=== PATIENT | male | born 1935 | race Caucasian/White ===

== ENCOUNTER 2019-10-31 | Emergency (ER) | payer OTHER, MEDICARE ==
[2019-10-31] MEDS ORDERED: ATORVASTATIN CA10 MG PO (10:18)
[2019-10-31 11:01] LABS: HEMATOCRIT 49.3 % (39.0-50.0); HEMOGLOBIN 15.9 g/dl (14.0-18.0); IMMATURE GRANULOCYTES 0.3 % (0.0-5.0); MEAN CELL VOLUME 94.3 fL CALC (80.0-100.0); MEAN CORPUSCULAR HGB 30.4 pG CALC (26.0-32.0); MEAN CORPUSCULAR HGB CONC 32.3 g/L CALC (32.0-36.0); NEUT# 5.62 thou/uL (1.82-7.42); RED BLOOD COUNT 5.23 mill/uL (4.70-6.10); RED CELL DISTRI WIDTH 14.2 % (11.5-15.5)
[2019-10-31 11:18] LABS: ALBUMIN 4.8 g/dL (3.2-5.0); ALKALINE PHOSPHATASE 90 u/l (38-126); ANION GAP 15 (6-22 (CALC)); BILIRUBIN, TOTAL 0.9 mg/dL (0.0-1.4); BUN 16 mg/dL (8-23); BUN/CREATININE RATIO 22 (12-20 (CALC)); CARBON DIOXIDE 28 mmol/l (22-30); CHLORIDE 101 mmol/l (95-108); CREATININE 0.8 mg/dL (0.7-1.3); GFR > 60 ML/MIN (>=60 (CALC)); GFR FOR AFR.AMER. > 60 ML/MIN (>=60 (CALC)); POTASSIUM 4.3 mmol/l (3.5-5.1); SGOT/AST 42 u/l (19-48); SODIUM 140 mmol/l (137-146); TOTAL PROTEIN 8.6 g/dL (6.3-8.2)
[2019-10-31] MEDS ORDERED: DOXY-CAPS100 MG PO (11:48)
[2019-10-31] MEDS ORDERED: PREDNISONE50 MG PO (11:48)
== END 2019-10-31 12:26 | disposition home or self-care (01) | DRG 203 ==
PROVIDERS: Family Medicine
DX: J40 Bronchitis, not specified as acute or chronic (principal)

== ENCOUNTER 2021-10-26 12:45 | Emergency (ER) | payer OTHER, MEDICARE ==
[~2021-10-26] VITALS: Ht 175.3 cm; Wt 52.2 kg
[~2021-10-26 12:45] MED LIST: ATORVASTATIN CA10 MG PO; DOXY-CAPS100 MG PO; PREDNISONE50 MG PO
[2021-10-26] MEDS ORDERED: PROAIR HFA108 MCG/AC (13:09)
[2021-10-26] MEDS ORDERED: SPIRIVA RE1.25 MCG/A (13:09)
[2021-10-26] MEDS ORDERED: WIXELA INHUB 251 AER IN (13:10)
[2021-10-26 13:48] LABS: URINE BILIRUBIN - DIPSTICK NEGATIVE (NEGATIVE); URINE BLOOD DIPSTICK MODERATE (NEGATIVE); URINE COLOR YELLOW; URINE GLUCOSE - DIPSTICK NEGATIVE (NEGATIVE); URINE KETONE NEGATIVE (NEGATIVE); URINE LEUK ESTERASE LARGE (NEGATIVE); URINE NITRITE - DIPSTICK NEGATIVE (Negative); URINE PROTEIN - DIPSTICK 100 mg/dL (NEG-TRACE); URINE SPECIFIC GRAVITY 1.025; URINE UROBILINOGEN - DIPSTICK 0.2 E.U./dL (0.2)
[2021-10-26 13:49] LABS: URINE BACTERIA MANY hpf; URINE EPITHELIAL CELLS RARE EPI/hpf (0-FEW); URINE WBC 50-100 WBC/hpf (0-5)
[2021-10-26 14:01] LABS: HEMATOCRIT 45.3 % (39.0-50.0); IMMATURE GRANULOCYTES 0.2 % (0.0-5.0); MEAN CELL VOLUME 97.4 fL CALC (80.0-100.0); MEAN CORPUSCULAR HGB 32.3 pG CALC (26.0-32.0); MEAN CORPUSCULAR HGB CONC 33.1 g/dL CAL (32.0-36.0); NEUT# 7.29 thou/uL (1.82-7.42); RED BLOOD COUNT 4.65 mill/uL (4.70-6.10); RED CELL DISTRI WIDTH 13.9 % (11.5-15.5)
[2021-10-26 14:14] LABS: ALBUMIN 3.9 g/dL (3.2-5.0); ALKALINE PHOSPHATASE 111 u/l (38-126); ANION GAP 8 (6-22 (CALC)); BILIRUBIN, TOTAL 0.9 mg/dL (0.0-1.4); BUN 15 mg/dL (8-23); BUN/CREATININE RATIO 17 (12-20 (CALC)); CARBON DIOXIDE 33 mmol/l (22-30); CHLORIDE 102 mmol/l (95-108); CREATININE 0.9 mg/dL (0.7-1.3); GFR > 60 ML/MIN (>=60 (CALC)); GFR FOR AFR.AMER. > 60 ML/MIN (>=60 (CALC)); POTASSIUM 4.3 mmol/l (3.5-5.1); SGOT/AST 29 u/l (19-48); SODIUM 138 mmol/l (137-146); TOTAL PROTEIN 7.7 g/dL (6.3-8.2)
[2021-10-26] MEDS ORDERED: OMNI-PAC300 MG PO (14:31)
[2021-10-26 15:15] VITALS: BP 167/97
== END 2021-10-26 15:15 | disposition home or self-care (01) | DRG 690 ==
LOC: ED 12:45
PROVIDERS: Family Medicine
DX: N39.0 Urinary tract infection, site not specified (principal); J44.9 Chronic obstructive pulmonary disease, unspecified; E78.00 Pure hypercholesterolemia, unspecified; B95.2 Enterococcus as the cause of diseases classified elsewhere

== ENCOUNTER 2021-11-13 18:27 | Emergency (ER) | payer OTHER, MEDICARE ==
[~2021-11-13 18:27] MED LIST changes: +OMNI-PAC300 MG PO; +PROAIR HFA108 MCG/AC; +SPIRIVA RE1.25 MCG/A; +WIXELA INHUB 251 AER IN
[2021-11-14] MEDS ORDERED: CIPROFLOXACN500 MG PO (19:18)
== END 2021-11-13 19:40 | disposition left against medical advice (07) | DRG 951 ==
LOC: ED 18:27 → LWOBS 19:40 → ED 19:40
DX: Z53.21 Procedure and treatment not carried out due to patient leaving prior to being seen by health care provider (principal)

== ENCOUNTER 2021-11-14 15:48 | Emergency (ER) | payer OTHER, MEDICARE ==
[~2021-11-14] VITALS: Ht 175.3 cm; Wt 65.0 kg
[2021-11-14 16:39] LABS: HEMATOCRIT 46.8 % (39.0-50.0); IMMATURE GRANULOCYTES 0.1 % (0.0-5.0); MEAN CELL VOLUME 98.3 fL CALC (80.0-100.0); MEAN CORPUSCULAR HGB 31.5 pG CALC (26.0-32.0); MEAN CORPUSCULAR HGB CONC 32.1 g/dL CAL (32.0-36.0); NEUT# 7.77 thou/uL (1.82-7.42); RED BLOOD COUNT 4.76 mill/uL (4.70-6.10); RED CELL DISTRI WIDTH 14.2 % (11.5-15.5)
[2021-11-14 16:57] LABS: ALBUMIN 4.3 g/dL (3.2-5.0); ALKALINE PHOSPHATASE 129 u/l (38-126); ANION GAP 10 (6-22 (CALC)); BILIRUBIN, TOTAL 0.6 mg/dL (0.0-1.4); BUN 23 mg/dL (8-23); BUN/CREATININE RATIO 29 (12-20 (CALC)); CARBON DIOXIDE 34 mmol/l (22-30); CHLORIDE 99 mmol/l (95-108); CREATININE 0.8 mg/dL (0.7-1.3); GFR > 60 ML/MIN (>=60 (CALC)); GFR FOR AFR.AMER. > 60 ML/MIN (>=60 (CALC)); POTASSIUM 4.4 mmol/l (3.5-5.1); SGOT/AST 32 u/l (19-48); SODIUM 139 mmol/l (137-146); TOTAL PROTEIN 8.1 g/dL (6.3-8.2)
[2021-11-14 17:04] LABS: URINE BILIRUBIN - DIPSTICK NEGATIVE (NEGATIVE); URINE BLOOD DIPSTICK TRACE-INTACT (NEGATIVE); URINE COLOR YELLOW; URINE GLUCOSE - DIPSTICK NEGATIVE (NEGATIVE); URINE KETONE TRACE mg/dL (NEGATIVE); URINE PROTEIN - DIPSTICK 30 mg/dL (NEG-TRACE); URINE UROBILINOGEN - DIPSTICK 0.2 E.U./dL (0.2)
[2021-11-14 17:09] LABS: URINE LEUK ESTERASE LARGE (NEGATIVE); URINE NITRITE - DIPSTICK NEGATIVE (Negative)
[2021-11-14 17:19] LABS: URINE WBC TNTC WBC/hpf (0-5)
[2021-11-14 18:15] LABS: AMYLASE 60 u/l (30-110); LIPASE 39 u/l (23-300)
[2021-11-14] MEDS ORDERED: CIPROFLOXACN500 MG PO (19:18)
[2021-11-14 21:20] VITALS: BP 121/90
== END 2021-11-14 21:10 | disposition home or self-care (01) | DRG 690 ==
LOC: ED 15:48
PROVIDERS: Emergency Medicine
DX: N39.0 Urinary tract infection, site not specified (principal); J44.9 Chronic obstructive pulmonary disease, unspecified; E78.00 Pure hypercholesterolemia, unspecified; B95.2 Enterococcus as the cause of diseases classified elsewhere

== ENCOUNTER 2022-02-11 12:41 | Observation (INO) | payer OTHER, MEDICARE ==
[~2022-02-11] VITALS: Ht 175.3 cm; Wt 55.0 kg
[2022-02-11] VITALS (20 sets, daily range): BP systolic 116–162; BP diastolic 69–118
[~2022-02-11 12:41] MED LIST changes: -ATORVASTATIN CA10 MG PO; +ATORVASTATIN CA80 MG PO; +CIPROFLOXACN500 MG PO; -PROAIR HFA108 MCG/AC; +PROAIR HFA108 MCG/AC PO
--- NOTE | 2022-02-11 12:55 | NUR ---
PT AMBULATED TO ROOM FOR EVAL OF SOB WITH EXERTION
[2022-02-11 13:10] LABS: HEMATOCRIT 46.2 % (39.0-50.0); HEMOGLOBIN 15.1 g/dl (14.0-18.0); IMMATURE GRANULOCYTES 0.3 % (0.0-5.0); MEAN CELL VOLUME 96.7 fL CALC (80.0-100.0); MEAN CORPUSCULAR HGB 31.6 pG CALC (26.0-32.0); MEAN CORPUSCULAR HGB CONC 32.7 g/dL CAL (32.0-36.0); NEUT# 4.34 thou/uL (1.82-7.42); RED BLOOD COUNT 4.78 mill/uL (4.70-6.10); RED CELL DISTRI WIDTH 14.3 % (11.5-15.5)
[2022-02-11 13:15] LABS: ALBUMIN 4.4 g/dL (3.2-5.0); ALKALINE PHOSPHATASE 113 u/l (38-126); ANION GAP 12 (6-22 (CALC)); BILIRUBIN, TOTAL 0.6 mg/dL (0.0-1.4); BUN 19 mg/dL (8-23); BUN/CREATININE RATIO 24 (12-20 (CALC)); CARBON DIOXIDE 28 mmol/l (22-30); CHLORIDE 103 mmol/l (95-108); CREATININE 0.8 mg/dL (0.7-1.3); GFR > 60 ML/MIN (>=60 (CALC)); GFR FOR AFR.AMER. > 60 ML/MIN (>=60 (CALC)); POTASSIUM 4.4 mmol/l (3.5-5.1); SGOT/AST 38 u/l (19-48); SODIUM 138 mmol/l (137-146); TOTAL PROTEIN 7.8 g/dL (6.3-8.2)
--- NOTE | 2022-02-11 13:29 | NUR ---
PT RECEIVING NEB TX AT THIS TIME.
--- NOTE | 2022-02-11 13:34 | NUR ---
LAB IN TO OBTAIN SWABS AND BLOOD. PT STABLE AT THIS TIME.
--- NOTE | 2022-02-11 14:15 | NUR ---
DR RESTREPO IN TO SEE PT AND DISCUSS POC. PT STABLE AT THIS TIME. NO DISTRESS, BREATHING EVEN AND UNLABORED.
--- NOTE | 2022-02-11 15:15 | NUR ---
PT RESTING ON ED BED, DENIES ANY NEEDS. ADVISED OF WAIT TIME.
--- NOTE | 2022-02-11 16:15 | NUR ---
PT REMAINS STABLE, DENIES NEEDS.
--- NOTE | 2022-02-11 16:42 | NUR ---
PT AMBULATORY TO ED BATHROOM WITH STANDBY ASSIST, PT WITH STEADY GAIT. PT BACK TO ROOM AND PROVIDED WITH WATER TO DRINK. PT STABLE. WILL CONTINUE TO MONITOR.
--- NOTE | 2022-02-11 17:34 | NUR ---
PT RESTING ON ED BED, VSS. ADVISED OF WAIT TIME. PT DENIES ANY NEEDS AT THIS TIME.
--- NOTE | 2022-02-11 17:55 | NUR ---
DR RESTREPO IN TO SPEAK WITH PT ABOUT RESULTS AND POC.
--- NOTE | 2022-02-11 18:49 | NUR ---
PT SITTING AT THE EDGE OF THE BED, AWAITING ADMISSION. PT STABLE.
--- NOTE | 2022-02-11 19:30 | NUR ---
CALL PLACED TO MED/SURG TO GIVE REPORT, NURSE WILL CALL BACK.
--- NOTE | 2022-02-11 19:54 | NUR ---
SBAR REPORT GIVEN TO CHANDAN BRAMBILA
--- NOTE | 2022-02-11 19:55 | NUR ---
ADMITTED TO ROOM 262 FROM ED IN STABLE CONDITION. VS DOCUMENTED. PT A/O X 4 RESPIRATIONS EVEN AND UNLABORED, LUNGS DIMINISHED, SOB NOTED WITH ACTIVITY. BS ACTIVE NO BLE EDEMA NOTED. PIV WDL BED LOW AND LOCKED CALL ALLAN IN REACH SIDE RAILS UP SAFETY MEASURES IN PLACE PER POLICY
--- NOTE | 2022-02-11 20:00 | NUR ---
PT TAKEN TO MED/SURG VIA WHEELCHAIR IN STABLE CONDITION. ALL BELONGINGS AND PAPERWORK HANDED OFF TO STAFF.
--- NOTE | 2022-02-12 00:40 | NUR ---
RESTING IN BED EYES CLOSED RESPIRATIONS EVEN AND UNLABORED. VS CHARTED SAFETY MEASURES IN PLACE PER POLICY
--- NOTE | 2022-02-12 03:50 | NUR ---
PT SLEPT ON AND OFF OVERNIGHT. VS DOCUMENTED. NO ACUTE EVENTS THIS SHIFT. MINIMAL SOB WITH ACTIVITY
[2022-02-12 04:24] VITALS: BP 123/76
[2022-02-12 05:27] LABS: HEMATOCRIT 45.3 % (39.0-50.0); HEMOGLOBIN 14.9 g/dl (14.0-18.0); MEAN CORPUSCULAR HGB 31.6 pG CALC (26.0-32.0); MEAN CORPUSCULAR HGB CONC 32.9 g/dL CAL (32.0-36.0); RED BLOOD COUNT 4.72 mill/uL (4.70-6.10); RED CELL DISTRI WIDTH 14.3 % (11.5-15.5)
[2022-02-12 05:39] LABS: ANION GAP 11 (6-22 (CALC)); BUN 17 mg/dL (8-23); BUN/CREATININE RATIO 26 (12-20 (CALC)); CARBON DIOXIDE 24 mmol/l (22-30); CHLORIDE 108 mmol/l (95-108); CREATININE 0.7 mg/dL (0.7-1.3); GFR > 60 ML/MIN (>=60 (CALC)); GFR FOR AFR.AMER. > 60 ML/MIN (>=60 (CALC)); MAGNESIUM 2.2 mg/dL (1.6-2.3); POTASSIUM 4.3 mmol/l (3.5-5.1); SODIUM 139 mmol/l (137-146)
[2022-02-12 07:28] VITALS: BP 118/71
[2022-02-12] MEDS ORDERED: BREZTRI AEROSPH1 AER PO (09:07)
[2022-02-12] MEDS ORDERED: TAMSULOSIN HCL0.4 MG PO (09:08)
--- NOTE | 2022-02-12 10:21 | NUR ---
PT SITTING ON THE SIDE OF THE BED AT THIS TIME. STATES NO PAIN OR FEELING OF SOB. ONLY WHEN MOVING AROUND IN THE ROOM. ASSESSMENT AND VITALS ALLOWED. FALL/SAFTEY PRECAUTION IN PLACE. CALL LIGHT WITHIN REACH.
[2022-02-12] MEDS ORDERED: GUAIFENESI100 MG/51 PO (13:15)
[2022-02-12] MEDS ORDERED: MEDDOSEPAK PO (13:23)
--- NOTE | 2022-02-12 16:17 | NUR ---
Discharge instructions given. Patient verbalizes understanding of same. Discharged in stable condition via Wheelchair to Home with staff. All belongings sent with pt.
== END 2022-02-12 15:55 | disposition home or self-care (01) | DRG 192 ==
LOC: ED 12:41 → ED-I 18:00 → ED 18:16 → MS2 18:17
PROVIDERS: Family Medicine; ADMIT Hospitalist; ATTEND Hospitalist
DX: J44.1 Chronic obstructive pulmonary disease with (acute) exacerbation (principal); I27.20 Pulmonary hypertension, unspecified; E78.00 Pure hypercholesterolemia, unspecified; N40.0 Benign prostatic hyperplasia without lower urinary tract symptoms; Z87.891 Personal history of nicotine dependence; Z20.822 Contact with and (suspected) exposure to COVID-19
CPT/HCPCS: J1650; Q9967

== ENCOUNTER 2022-02-25 19:41 | Emergency (ER) | payer OTHER, MEDICARE ==
[~2022-02-25] VITALS: Ht 175.3 cm; Wt 54.0 kg
[~2022-02-25 19:41] MED LIST changes: +BREZTRI AEROSPH1 AER PO; +GUAIFENESI100 MG/51 PO; +MEDDOSEPAK PO; +TAMSULOSIN HCL0.4 MG PO
[2022-02-25 19:48] VITALS: BP 140/99
[2022-02-25 20:00] VITALS: BP 132/114
[2022-02-25 20:15] VITALS: BP 155/80
[2022-02-25] MEDS ORDERED: KEFLEX500 MG PO (20:17)
[2022-02-25 20:32] VITALS: BP 131/80
[2022-02-25 20:51] VITALS: BP 131/80
== END 2022-02-25 20:45 | disposition home or self-care (01) | DRG 605 ==
LOC: ED 19:41
PROC: 0HQMXZZ Repair Right Foot Skin, External Approach (ICD-10-PCS; principal; 2022-02-25)
DX: S91.311A Laceration without foreign body, right foot, initial encounter (principal); W20.8XXA Other cause of strike by thrown, projected or falling object, initial encounter; Y92.000 Kitchen of unspecified non-institutional (private) residence as the place of occurrence of the external cause

== ENCOUNTER 2022-03-08 15:38 | Emergency (ER) | payer OTHER, MEDICARE ==
[~2022-03-08] VITALS: Ht 175.3 cm; Wt 77.0 kg
[~2022-03-08 15:38] MED LIST changes: +KEFLEX500 MG PO
[2022-03-08 15:46] VITALS: BP 139/86
[2022-03-08] MEDS ORDERED: OMNI-PAC300 MG PO (15:48)
== END 2022-03-08 15:57 | disposition home or self-care (01) | DRG 950 ==
LOC: ED 15:38
DX: S91.311D Laceration without foreign body, right foot, subsequent encounter (principal); X58.XXXD Exposure to other specified factors, subsequent encounter

== ENCOUNTER 2022-06-08 12:25 | Observation (INO) | payer OTHER, MEDICARE ==
[~2022-06-08] VITALS: Ht 175.3 cm; Wt 73.0 kg
[2022-06-08] VITALS (20 sets, daily range): BP systolic 110–170; BP diastolic 68–103
[2022-06-08 12:59] LABS: HEMATOCRIT 47.1 % (39.0-50.0); HEMOGLOBIN 15.7 g/dl (14.0-18.0); IMMATURE GRANULOCYTES 0.1 % (0.0-5.0); MEAN CELL VOLUME 94.6 fL CALC (80.0-100.0); MEAN CORPUSCULAR HGB 31.5 pG CALC (26.0-32.0); MEAN CORPUSCULAR HGB CONC 33.3 g/dL CAL (32.0-36.0); NEUT# 5.7 thou/uL (1.82-7.42); RED BLOOD COUNT 4.98 mill/uL (4.70-6.10); RED CELL DISTRI WIDTH 13.7 % (11.5-15.5)
--- NOTE | 2022-06-08 13:01 | NUR ---
RT AT BEDSIDE FOR BREATHING TREATMENT.
[2022-06-08 13:11] LABS: ALBUMIN 4.5 g/dL (3.2-5.0); ALKALINE PHOSPHATASE 109 u/l (38-126); ANION GAP 13 (6-22 (CALC)); BILIRUBIN, TOTAL 0.7 mg/dL (0.0-1.4); BUN 15 mg/dL (8-23); BUN/CREATININE RATIO 23 (12-20 (CALC)); CARBON DIOXIDE 24 mmol/l (22-30); CHLORIDE 106 mmol/l (95-108); CREATININE 0.7 mg/dL (0.7-1.3); GFR FOR AFR.AMER. > 60 ML/MIN (>=60 (CALC)); GFR OTHER RACES > 60 ML/MIN (>=60 (CALC)); POTASSIUM 4.4 mmol/l (3.5-5.1); SGOT/AST 40 u/l (19-48); SODIUM 138 mmol/l (137-146); TOTAL PROTEIN 7.8 g/dL (6.3-8.2)
--- NOTE | 2022-06-08 14:00 | NUR ---
PATIENT ALERT AND ORIENTED X4, RESTING ON STRETCHER WITH NO SIGNS OF RESPIRATORY DISTRESS AFTER BREATHING TREATMENT. IV ANTIBIOTICS INFUSING. WAITING ON RESULTS AND DISPO
--- NOTE | 2022-06-08 14:25 | NUR ---
WAITING ON MED SURG NURSE TO TAKE PATIENT UP TO MED SURG.
--- NOTE | 2022-06-08 14:48 | NUR ---
PATIENT IN RADIOLOGY FOR CTA
[2022-06-08 15:16] LABS: URINE BILIRUBIN - DIPSTICK NEGATIVE (NEGATIVE); URINE BLOOD DIPSTICK NEGATIVE (NEGATIVE); URINE COLOR YELLOW; URINE GLUCOSE - DIPSTICK NEGATIVE (NEGATIVE); URINE KETONE NEGATIVE (NEGATIVE); URINE LEUK ESTERASE NEGATIVE (NEGATIVE); URINE NITRITE - DIPSTICK NEGATIVE (Negative); URINE PROTEIN - DIPSTICK NEGATIVE (NEG-TRACE); URINE UROBILINOGEN - DIPSTICK 0.2 E.U./dL (0.2)
[2022-06-08] MEDS ORDERED: STIOLTO RESPIMA1 AER (15:34)
--- NOTE | 2022-06-08 15:35 | NUR ---
MED REC COMPLETED WITH PATIENT.
--- NOTE | 2022-06-08 16:45 | NUR ---
Admission Note Report Given to: COLETTE Transported by: X Wheelchair Stretcher Transported with: X Nurse Transporter X Patent IV X O2 X Cylinder Press Operator Helper Location: ICU X MS2 PATIENT TAKES GLASSES, BLACK CELL PHONE AND COTHING WITH PATIENT. BEDSIDE REPORT, CARE RELINQUISHED
--- NOTE | 2022-06-08 17:00 | NUR ---
PATIENT IS A/OX3, CLEAR SPEECH, 3MM PERRL BILAT EYES, DENTURES, DIMINSIHED LUNG SOUNDS. ACTIVE BOWEL SOUNDS. SOFT NON TENDER ABODMEN. NO EDEMA PRESENT AT THIS TIME. NO OPEN AREAS. STEADY ON HIS FEET. WALKS TO AND FROM BATHROOM STEADY. ROOM AIR 91/90%. STATED HE ONLY WANTS TO USE THE O2 NC WHEN AMBULATING. SAFETY MEASURES IN PLACE,. CALL LIGHT IN REACH. VITAL SIGNS STABLE. WILL COTNINUE TO MONITOR PER HOSPITAL'S POLICY.
--- NOTE | 2022-06-08 18:00 | NUR ---
SITTING UP WAITING FOR DINNER TRAY
--- NOTE | 2022-06-08 19:10 | NUR ---
REPORT RECEIVED FROM Quique ROYAL RN
--- NOTE | 2022-06-08 19:45 | NUR ---
ASSEMENT COMPLETED AT THIS TIME.
--- NOTE | 2022-06-08 21:00 | NUR ---
PATIENT PROVIDED WITH JUICE AND ICECREAM PER PATIENT REQUEST.
--- NOTE | 2022-06-09 00:30 | NUR ---
PATIENT RESTING COMOFRTABLY, DENIES ANY CURRENT NEEDS, CALL LIGHT AQND BEDSIDE TABLE WTHIHN REACH.
--- NOTE | 2022-06-09 04:00 | NUR ---
PATIENT UP TO THE BATHROOM WIth STAND BY ASSIT X1.
[2022-06-09 04:14] VITALS: BP 102/71
[2022-06-09 06:21] LABS: HEMATOCRIT 43.3 % (39.0-50.0); HEMOGLOBIN 14.3 g/dl (14.0-18.0); IMMATURE GRANULOCYTES 0.2 % (0.0-5.0); MEAN CELL VOLUME 96.9 fL CALC (80.0-100.0); NEUT# 9.04 thou/uL (1.82-7.42); RED BLOOD COUNT 4.47 mill/uL (4.70-6.10); RED CELL DISTRI WIDTH 13.8 % (11.5-15.5)
[2022-06-09 07:16] LABS: ALBUMIN 3.7 g/dL (3.2-5.0); ALKALINE PHOSPHATASE 85 u/l (38-126); ANION GAP 13 (6-22 (CALC)); BUN 20 mg/dL (8-23); BUN/CREATININE RATIO 31 (12-20 (CALC)); CARBON DIOXIDE 24 mmol/l (22-30); CHLORIDE 106 mmol/l (95-108); CREATININE 0.6 mg/dL (0.7-1.3); GFR FOR AFR.AMER. > 60 ML/MIN (>=60 (CALC)); GFR OTHER RACES > 60 ML/MIN (>=60 (CALC)); MAGNESIUM 2.5 mg/dL (1.6-2.3); POTASSIUM 4.1 mmol/l (3.5-5.1); SGOT/AST 27 u/l (19-48); SODIUM 139 mmol/l (137-146); TOTAL PROTEIN 6.3 g/dL (6.3-8.2)
[2022-06-09 07:18] LABS: BILIRUBIN, TOTAL 0.4 mg/dL (0.0-1.4)
[2022-06-09 07:57] VITALS: BP 113/61
[2022-06-09 08:00] VITALS: BP 113/61
--- NOTE | 2022-06-09 08:47 | NUR ---
PT RESTING IN HIGH FOWLERS POSITION. PT A/OX3 ASSESMENT AND VS COMPLETED. HEART RHYTHM NORMAL. BOWEL SOUNDS ACTIVE. RESPIRATIONS UNLABORED. PT SATS 90'S PT STATES DOES NOT NEED OXYGEN . PT STATES SHORT OF BREATH WHEN AMUBALATING CALMS DOWN ONCE SEATED. PT DENIES ADDITIONAL NEEDS AT THE TIME ALL SAFETY PRECAUTIONS IN PLACE. IV SITE NOTED.
[2022-06-09 11:37] VITALS: BP 125/66
[2022-06-09] MEDS ORDERED: PREDNISONE10 MG PO (12:07)
[2022-06-09] MEDS ORDERED: PROVENTIL0.083 % IN (12:07)
--- NOTE | 2022-06-09 12:41 | NUR ---
PT TO BE DC. ON CONTINUOUS PULSE OX MONITOR.
--- NOTE | 2022-06-09 14:00 | NUR ---
Discharge instructions given. Patient verbalizes understanding of same. Discharged in stable condition via Wheelchair to Home with volunteer. All belongings sent with pt. IV REMOVED TELE REMOVED ER INFORMED
== END 2022-06-09 13:54 | disposition home or self-care (01) | DRG 192 ==
LOC: ED 12:25 → ED-I 16:07 → ED 16:18 → MS2 16:19
PROVIDERS: Family Medicine; ADMIT Internal Medicine; ATTEND Internal Medicine
DX: J44.1 Chronic obstructive pulmonary disease with (acute) exacerbation (principal); N40.0 Benign prostatic hyperplasia without lower urinary tract symptoms; Z20.822 Contact with and (suspected) exposure to COVID-19
CPT/HCPCS: Q9967

== ENCOUNTER 2022-07-20 13:01 | Emergency (ER) | payer OTHER, MEDICARE ==
[~2022-07-20] VITALS: Ht 175.3 cm; Wt 55.3 kg
[~2022-07-20 13:01] MED LIST changes: +PREDNISONE10 MG PO; +PROVENTIL0.083 % IN; +STIOLTO RESPIMA1 AER
[2022-07-20 13:35] LABS: ALKALINE PHOSPHATASE 108 u/l (38-126); ANION GAP 15 (6-22 (CALC)); BUN 15 mg/dL (8-23); BUN/CREATININE RATIO 19 (12-20 (CALC)); CARBON DIOXIDE 25 mmol/l (22-30); CHLORIDE 102 mmol/l (95-108); CREATININE 0.8 mg/dL (0.7-1.3); GFR FOR AFR.AMER. > 60 ML/MIN (>=60 (CALC)); GFR OTHER RACES > 60 ML/MIN (>=60 (CALC)); POTASSIUM 4.3 mmol/l (3.5-5.1); SGOT/AST 37 u/l (19-48); SODIUM 138 mmol/l (137-146)
[2022-07-20 13:39] LABS: HEMATOCRIT 47.9 % (39.0-50.0); HEMOGLOBIN 16.1 g/dl (14.0-18.0); IMMATURE GRANULOCYTES 0.1 % (0.0-5.0); MEAN CELL VOLUME 94.5 fL CALC (80.0-100.0); MEAN CORPUSCULAR HGB 31.8 pG CALC (26.0-32.0); MEAN CORPUSCULAR HGB CONC 33.6 g/dL CAL (32.0-36.0); NEUT# 5.81 thou/uL (1.82-7.42); RED BLOOD COUNT 5.07 mill/uL (4.70-6.10); RED CELL DISTRI WIDTH 14.1 % (11.5-15.5)
[2022-07-20 13:47] LABS: ALBUMIN 4.6 g/dL (3.2-5.0); BILIRUBIN, TOTAL 0.8 mg/dL (0.0-1.4); TOTAL PROTEIN 7.7 g/dL (6.3-8.2)
[2022-07-20] MEDS ORDERED: ZPAK PO ×2 (14:52→15:38)
[2022-07-20] MEDS ORDERED: PREDNISONE50 MG PO ×2 (14:52→15:38)
[2022-07-20] MEDS ORDERED: IPRATROPIU0.5 MG/3 M IN ×2 (14:52→15:38)
[2022-07-20 15:02] VITALS: BP 135/94
== END 2022-07-20 15:14 | disposition home or self-care (01) | DRG 192 ==
LOC: ED 13:01
PROVIDERS: Family Medicine
DX: J44.1 Chronic obstructive pulmonary disease with (acute) exacerbation (principal); Z20.822 Contact with and (suspected) exposure to COVID-19

== ENCOUNTER 2022-09-12 11:35 | Emergency (ER) | payer OTHER, MEDICARE ==
[~2022-09-12] VITALS: Ht 175.3 cm; Wt 52.2 kg
[~2022-09-12 11:35] MED LIST changes: +IPRATROPIU0.5 MG/3 M IN; +ZPAK PO
[2022-09-12] MEDS ORDERED: METHOCARBAMOL500 MG PO ×2 (13:39→13:40)
[2022-09-12] MEDS ORDERED: NAPROXEN500 MG PO ×2 (13:39→13:40)
[2022-09-12 13:44] VITALS: BP 128/78
== END 2022-09-12 13:48 | disposition home or self-care (01) | DRG 544 ==
LOC: ED 11:35
DX: M48.56XA Collapsed vertebra, not elsewhere classified, lumbar region, initial encounter for fracture (principal); J44.9 Chronic obstructive pulmonary disease, unspecified

== ENCOUNTER 2023-02-17 14:27 | Observation (INO) | payer OTHER, MEDICARE ==
[2023-02-17] VITALS (13 sets, daily range): BP systolic 101–150; BP diastolic 60–99
[~2023-02-17] VITALS: Ht 175.3 cm; Wt 62.1 kg
[~2023-02-17 14:27] MED LIST changes: +METHOCARBAMOL500 MG PO; +NAPROXEN500 MG PO
[2023-02-17 15:08] LABS: BASO% 0.7 % (0-3); EOS% 1.2 % (0-8); HEMATOCRIT 49.6 % (39.0-50.0); HEMOGLOBIN 15.9 g/dl (14.0-18.0); IMMATURE GRANULOCYTES 0.4 % (0.0-5.0); LYMPH% 5.2 % (15-41); MEAN CORPUSCULAR HGB 31.4 pG CALC (26.0-32.0); MEAN CORPUSCULAR HGB CONC 32.1 g/dL CAL (32.0-36.0); MONO% 2.1 % (2-13); NEUT# 7.58 thou/uL (1.82-7.42); NEUT% 90.4 % (42-76); RED BLOOD COUNT 5.06 mill/uL (4.70-6.10); RED CELL DISTRI WIDTH 13.8 % (11.5-15.5)
[2023-02-17 15:21] LABS: ALBUMIN 4.7 g/dL (3.2-5.0); ALKALINE PHOSPHATASE 109 u/l (38-126); ANION GAP 12 (6-22 (CALC)); BILIRUBIN, TOTAL 0.7 mg/dL (0.2-1.3); BUN 18 mg/dL (8-23); BUN/CREATININE RATIO 22 (12-20 (CALC)); CARBON DIOXIDE 28 mmol/l (22-30); CHLORIDE 104 mmol/l (95-108); CREATININE 0.8 mg/dL (0.7-1.3); GFR FOR AFR.AMER. > 60 ML/MIN (>=60 (CALC)); GFR OTHER RACES > 60 ML/MIN (>=60 (CALC)); POTASSIUM 4.5 mmol/l (3.5-5.1); SGOT/AST 49 u/l (19-48); SODIUM 139 mmol/l (137-146); TOTAL PROTEIN 7.9 g/dL (6.3-8.2)
[2023-02-17] MEDS ORDERED: PREDNISONE5 MG PO (17:26)
[2023-02-18 05:26] VITALS: BP 133/81
[2023-02-18 07:02] VITALS: BP 115/61
[2023-02-18 10:09] VITALS: BP 149/95
[2023-02-18 15:14] VITALS: BP 109/62
[2023-02-18 18:39] VITALS: BP 115/68
[2023-02-18 22:10] VITALS: BP 126/73
[2023-02-19 04:44] VITALS: BP 101/57
[2023-02-19 05:17] LABS: URINE BILIRUBIN - DIPSTICK NEGATIVE (NEGATIVE); URINE BLOOD DIPSTICK NEGATIVE (NEGATIVE); URINE COLOR YELLOW; URINE GLUCOSE - DIPSTICK 250 mg/dL (NEGATIVE); URINE KETONE NEGATIVE (NEGATIVE); URINE LEUK ESTERASE NEGATIVE (NEGATIVE); URINE PROTEIN - DIPSTICK NEGATIVE (NEG-TRACE); URINE UROBILINOGEN - DIPSTICK 0.2 E.U./dL (0.2)
[2023-02-19 05:18] LABS: URINE NITRITE - DIPSTICK NEGATIVE (Negative)
[2023-02-19 05:26] LABS: MEAN CELL VOLUME 97.4 fL CALC (80.0-100.0); MEAN CORPUSCULAR HGB 32.2 pG CALC (26.0-32.0); MEAN CORPUSCULAR HGB CONC 33.1 g/dL CAL (32.0-36.0); RED BLOOD COUNT 4.25 mill/uL (4.70-6.10)
[2023-02-19 05:33] LABS: HEMATOCRIT 41.4 % (39.0-50.0); HEMOGLOBIN 13.7 g/dl (14.0-18.0)
[2023-02-19 05:46] LABS: ALBUMIN 3.8 g/dL (3.2-5.0); ALKALINE PHOSPHATASE 76 u/l (38-126); ANION GAP 9 (6-22 (CALC)); BILIRUBIN, TOTAL 0.4 mg/dL (0.2-1.3); BUN 23 mg/dL (8-23); BUN/CREATININE RATIO 30 (12-20 (CALC)); CARBON DIOXIDE 28 mmol/l (22-30); CHLORIDE 105 mmol/l (95-108); CREATININE 0.8 mg/dL (0.7-1.3); GFR FOR AFR.AMER. > 60 ML/MIN (>=60 (CALC)); GFR OTHER RACES > 60 ML/MIN (>=60 (CALC)); MAGNESIUM 2.5 mg/dL (1.6-2.3); POTASSIUM 4.4 mmol/l (3.5-5.1); SGOT/AST 34 u/l (19-48); SODIUM 137 mmol/l (137-146); TOTAL PROTEIN 6.4 g/dL (6.3-8.2)
[2023-02-19 07:35] VITALS: BP 130/71
[2023-02-19 10:50] VITALS: BP 132/66
[2023-02-19 16:16] VITALS: BP 139/75
[2023-02-19 20:01] VITALS: BP 139/74
[2023-02-19 23:53] VITALS: BP 116/67
[2023-02-20 03:59] VITALS: BP 115/72
[2023-02-20 05:48] LABS: BASO% 0.1 % (0-3); HEMATOCRIT 42.4 % (39.0-50.0); HEMOGLOBIN 13.8 g/dl (14.0-18.0); IMMATURE GRANULOCYTES 0.4 % (0.0-5.0); LYMPH% 2.8 % (15-41); MEAN CELL VOLUME 97.2 fL CALC (80.0-100.0); MEAN CORPUSCULAR HGB 31.7 pG CALC (26.0-32.0); MEAN CORPUSCULAR HGB CONC 32.5 g/dL CAL (32.0-36.0); MONO% 2.7 % (2-13); NEUT# 10.6 thou/uL (1.82-7.42); RED BLOOD COUNT 4.36 mill/uL (4.70-6.10); RED CELL DISTRI WIDTH 14.3 % (11.5-15.5)
[2023-02-20 05:59] LABS: ALBUMIN 3.6 g/dL (3.2-5.0); ALKALINE PHOSPHATASE 70 u/l (38-126); ANION GAP 10 (6-22 (CALC)); BILIRUBIN, TOTAL 0.3 mg/dL (0.2-1.3); BUN 23 mg/dL (8-23); BUN/CREATININE RATIO 33 (12-20 (CALC)); CARBON DIOXIDE 24 mmol/l (22-30); CHLORIDE 108 mmol/l (95-108); CREATININE 0.7 mg/dL (0.7-1.3); GFR FOR AFR.AMER. > 60 ML/MIN (>=60 (CALC)); GFR OTHER RACES > 60 ML/MIN (>=60 (CALC)); MAGNESIUM 2.5 mg/dL (1.6-2.3); POTASSIUM 4.5 mmol/l (3.5-5.1); SGOT/AST 38 u/l (19-48); SODIUM 138 mmol/l (137-146); TOTAL PROTEIN 5.9 g/dL (6.3-8.2)
[2023-02-20 06:48] VITALS: BP 129/74
[2023-02-20 10:34] VITALS: BP 152/77
[2023-02-20] MEDS ORDERED: ZITHROMAX250 MG PO (13:54)
[2023-02-20] MEDS ORDERED: PREDNISONE10 MG PO (13:54)
== END 2023-02-20 15:46 | disposition home or self-care (01) | DRG 190 ==
LOC: ED 14:27 → ED-I 14:42 → ED 14:42 → MS2 16:51
PROVIDERS: Nurse Practitioner; Nurse Practitioner Family; ADMIT Internal Medicine; ATTEND Internal Medicine
DX: J44.1 Chronic obstructive pulmonary disease with (acute) exacerbation (principal); J96.01 Acute respiratory failure with hypoxia; E78.5 Hyperlipidemia, unspecified; N40.0 Benign prostatic hyperplasia without lower urinary tract symptoms; Z87.891 Personal history of nicotine dependence; Z20.822 Contact with and (suspected) exposure to COVID-19
CPT/HCPCS: J1650

== ENCOUNTER 2023-12-13 15:24 | Observation (INO) | payer OTHER, MEDICARE ==
[2023-12-13] VITALS (12 sets, daily range): BP systolic 86–130; BP diastolic 61–80
[~2023-12-13] VITALS: Ht 175.3 cm; Wt 54.4 kg
[~2023-12-13 15:24] MED LIST changes: +PREDNISONE5 MG PO; +ZITHROMAX250 MG PO
[2023-12-13 15:48] LABS: GFR FOR AFR.AMER. > 60 ML/MIN (>=60 (CALC)); GFR OTHER RACES > 60 ML/MIN (>=60 (CALC))
[2023-12-13 15:50] LABS: BASO% 0.5 % (0-3); EOS% 3.9 % (0-8); HEMATOCRIT 40.3 % (39.0-50.0); HEMOGLOBIN 13.1 g/dl (14.0-18.0); IMMATURE GRANULOCYTES 0.1 % (0.0-5.0); MEAN CELL VOLUME 99.5 fL CALC (80.0-100.0); MEAN CORPUSCULAR HGB 32.3 pG CALC (26.0-32.0); MEAN CORPUSCULAR HGB CONC 32.5 g/dL CAL (32.0-36.0); MONO% 9.8 % (2-13); NEUT# 7.62 thou/uL (1.82-7.42); NEUT% 75.7 % (42-76); RED BLOOD COUNT 4.05 mill/uL (4.70-6.10); RED CELL DISTRI WIDTH 14.4 % (11.5-15.5)
[2023-12-13 16:07] LABS: ALBUMIN 3.3 g/dL (3.2-5.0); ALKALINE PHOSPHATASE 97 u/l (38-126); ANION GAP 7 (6-22 (CALC)); BILIRUBIN, TOTAL 0.8 mg/dL (0.2-1.3); BUN 18 mg/dL (8-23); BUN/CREATININE RATIO 26 (12-20 (CALC)); CALCULATED LDLCHOLESTEROL 121 mg/dL (62-129 (CALC)); CARBON DIOXIDE 31 mmol/l (22-30); CHLORIDE 106 mmol/l (95-108); CHOLESTEROL HDL RATIO 3.9 (<4.4 (CALC)); CREATININE 0.7 mg/dL (0.7-1.3); GFR FOR AFR.AMER. > 60 ML/MIN (>=60 (CALC)); GFR OTHER RACES > 60 ML/MIN (>=60 (CALC)); HDL CHOLESTEROL 47 mg/dL (39.0-59.0); POTASSIUM 3.9 mmol/l (3.5-5.1); SGOT/AST 40 u/l (19-48); SODIUM 140 mmol/l (137-146); TOTAL CHOLESTEROL 184 mg/dl (0-199); TOTAL TRIGLYCERIDES 80 mg/dl (0-149); VLDL CHOLESTROL 16 mg/dl (0-38 (CALC))
[2023-12-13] MEDS ORDERED: ASPIRIN 81 MG/TAB PO ONE (16:15)
[2023-12-13 16:39] LABS: INTERNATIONAL NORMALIZED RATIO 1.1 RATIO (0.7-1.3); PROTHROMBIN TIME 10.2 SECONDS (9.0-12.5)
[2023-12-13] MEDS ORDERED: IPRATROPIUM-Albuterol 0.5MG-2.5MG/3 ML NEB ONE (16:55)
[2023-12-13] MEDS ORDERED: PROVENTIL0.083 % IN (16:58)
[2023-12-13] MEDS ORDERED: MUCINEX600 MG PO (17:00)
[2023-12-13] MEDS ORDERED: MIRTAZAPINE15 MG PO (17:02)
[2023-12-13] MEDS ORDERED: CALCIUM 600/VI600 MG PO (17:03)
[2023-12-13] MEDS ORDERED: SODIUM CHLORIDE 0.9% 1,000 ML IV PRN (18:40)
[2023-12-13] MEDS ORDERED: DEXTROSE 250 ML IV PRN (18:40)
[2023-12-13] MEDS ORDERED: ACETAMINOPHEN 325 MG/TAB PO PRN (18:40)
[2023-12-13] MEDS ORDERED: MAGNESIUM HYDROXIDE 30 ML UDC PO PRN (18:40)
[2023-12-13] MEDS ORDERED: HALOPERIDOL LACTATE 5 MG/ML SDV IV PRN (18:50)
[2023-12-13] MEDS ORDERED: IPRATROPIUM-Albuterol 0.5MG-2.5MG/3 ML NEB PRN (18:50)
[2023-12-13 19:10] LABS: URINE BLOOD DIPSTICK Negative (NEGATIVE); URINE COLOR Yellow; URINE GLUCOSE - DIPSTICK Negative (NEGATIVE); URINE KETONE 15 mg/dL (NEGATIVE); URINE LEUK ESTERASE Negative (NEGATIVE); URINE NITRITE - DIPSTICK Negative (Negative); URINE PH 6.5 (4.5-8.0); URINE PROTEIN - DIPSTICK Negative (NEG-TRACE); URINE UROBILINOGEN - DIPSTICK 0.2 E.U./dL (0.2)
[2023-12-13] MEDS ORDERED: ATORVASTATIN CALCIUM 40 MG/TAB PO SCH (21:00)
[2023-12-13] MEDS ORDERED: MIRTAZAPINE 15 MG/TAB PO SCH (21:00)
[2023-12-13] MEDS ORDERED: ENOXAPARIN SODIUM 40 MG/0.4 ML SYR SC SCH (21:00)
[2023-12-14] VITALS (10 sets, daily range): BP systolic 111–137; BP diastolic 62–81
[2023-12-14 05:53] LABS: BASO% 0.5 % (0-3); EOS% 11.7 % (0-8); HEMATOCRIT 37.7 % (39.0-50.0); HEMOGLOBIN 12.3 g/dl (14.0-18.0); IMMATURE GRANULOCYTES 0.2 % (0.0-5.0); LYMPH% 16.1 % (15-41); MEAN CELL VOLUME 99.5 fL CALC (80.0-100.0); MEAN CORPUSCULAR HGB 32.5 pG CALC (26.0-32.0); MEAN CORPUSCULAR HGB CONC 32.6 g/dL CAL (32.0-36.0); MONO% 8.6 % (2-13); NEUT# 5.96 thou/uL (1.82-7.42); NEUT% 62.9 % (42-76); RED BLOOD COUNT 3.79 mill/uL (4.70-6.10); RED CELL DISTRI WIDTH 14.5 % (11.5-15.5)
[2023-12-14 06:06] LABS: ALBUMIN 2.8 g/dL (3.2-5.0); ALKALINE PHOSPHATASE 83 u/l (38-126); ANION GAP 6 (6-22 (CALC)); BILIRUBIN, TOTAL 0.7 mg/dL (0.2-1.3); BUN 19 mg/dL (8-23); BUN/CREATININE RATIO 31 (12-20 (CALC)); CARBON DIOXIDE 29 mmol/l (22-30); CHLORIDE 110 mmol/l (95-108); CREATININE 0.6 mg/dL (0.7-1.3); GFR FOR AFR.AMER. > 60 ML/MIN (>=60 (CALC)); GFR OTHER RACES > 60 ML/MIN (>=60 (CALC)); MAGNESIUM 2.2 mg/dL (1.6-2.3); SGOT/AST 43 u/l (19-48); SODIUM 140 mmol/l (137-146); TOTAL PROTEIN 5.3 g/dL (6.3-8.2)
[2023-12-14] MEDS ORDERED: TAMSULOSIN HCL 0.4 MG CAP PO SCH (08:00)
[2023-12-14] MEDS ORDERED: ASPIRIN EC 81 MG/TAB PO SCH (09:00)
[2023-12-14] MEDS ORDERED: predniSONE 20 MG/TAB PO SCH (10:30)
[2023-12-14] MEDS ORDERED: METOPROLOL TARTRATE 25 MG/TAB PO SCH (12:30)
[2023-12-15 04:20] VITALS: BP 123/71
[2023-12-15 06:51] VITALS: BP 114/69
[2023-12-15 06:53] LABS: BASO% 0.4 % (0-3); EOS% 2.3 % (0-8); HEMATOCRIT 35.4 % (39.0-50.0); HEMOGLOBIN 11.3 g/dl (14.0-18.0); IMMATURE GRANULOCYTES 0.3 % (0.0-5.0); LYMPH% 12.3 % (15-41); MEAN CELL VOLUME 101.4 fL CALC (80.0-100.0); MEAN CORPUSCULAR HGB 32.4 pG CALC (26.0-32.0); MEAN CORPUSCULAR HGB CONC 31.9 g/dL CAL (32.0-36.0); MONO% 10.2 % (2-13); NEUT# 5.58 thou/uL (1.82-7.42); NEUT% 74.5 % (42-76); RED BLOOD COUNT 3.49 mill/uL (4.70-6.10); RED CELL DISTRI WIDTH 14.5 % (11.5-15.5)
[2023-12-15 07:45] LABS: ALBUMIN 2.4 g/dL (3.2-5.0); ALKALINE PHOSPHATASE 100 u/l (38-126); ANION GAP 5 (6-22 (CALC)); BUN 21 mg/dL (8-23); BUN/CREATININE RATIO 27 (12-20 (CALC)); CARBON DIOXIDE 28 mmol/l (22-30); CHLORIDE 111 mmol/l (95-108); CREATININE 0.8 mg/dL (0.7-1.3); GFR FOR AFR.AMER. > 60 ML/MIN (>=60 (CALC)); GFR OTHER RACES > 60 ML/MIN (>=60 (CALC)); MAGNESIUM 2.1 mg/dL (1.6-2.3); POTASSIUM 4.2 mmol/l (3.5-5.1); SGOT/AST 33 u/l (19-48); SODIUM 139 mmol/l (137-146); TOTAL PROTEIN 4.8 g/dL (6.3-8.2)
[2023-12-15 07:59] LABS: BILIRUBIN, TOTAL 0.4 mg/dL (0.2-1.3)
[2023-12-15 10:47] VITALS: BP 108/64
[2023-12-15 14:52] VITALS: BP 118/78
[2023-12-15 19:23] VITALS: BP 111/69
[2023-12-15 23:54] VITALS: BP 105/66
[2023-12-16] VITALS (7 sets, daily range): BP systolic 96–113; BP diastolic 61–72
[2023-12-16] MEDS ORDERED: LOPRESSOR25 MG PO (13:17)
[2023-12-17 00:09] VITALS: BP 117/64
[2023-12-17 03:07] VITALS: BP 119/72
[2023-12-17 05:31] LABS: BASO% 0.4 % (0-3); EOS% 2.6 % (0-8); HEMATOCRIT 35.4 % (39.0-50.0); HEMOGLOBIN 11.1 g/dl (14.0-18.0); IMMATURE GRANULOCYTES 0.7 % (0.0-5.0); LYMPH% 14.4 % (15-41); MEAN CELL VOLUME 102.6 fL CALC (80.0-100.0); MEAN CORPUSCULAR HGB 32.2 pG CALC (26.0-32.0); MEAN CORPUSCULAR HGB CONC 31.4 g/dL CAL (32.0-36.0); MONO% 10.6 % (2-13); NEUT# 5.76 thou/uL (1.82-7.42); NEUT% 71.3 % (42-76); RED BLOOD COUNT 3.45 mill/uL (4.70-6.10); RED CELL DISTRI WIDTH 14.8 % (11.5-15.5)
[2023-12-17 05:48] LABS: ALBUMIN 2.3 g/dL (3.2-5.0); ALKALINE PHOSPHATASE 91 u/l (38-126); ANION GAP 1 (6-22 (CALC)); BILIRUBIN, TOTAL 0.3 mg/dL (0.2-1.3); BUN 18 mg/dL (8-23); BUN/CREATININE RATIO 27 (12-20 (CALC)); CARBON DIOXIDE 29 mmol/l (22-30); CHLORIDE 113 mmol/l (95-108); CREATININE 0.6 mg/dL (0.7-1.3); GFR FOR AFR.AMER. > 60 ML/MIN (>=60 (CALC)); GFR OTHER RACES > 60 ML/MIN (>=60 (CALC)); MAGNESIUM 2.2 mg/dL (1.6-2.3); POTASSIUM 3.8 mmol/l (3.5-5.1); SGOT/AST 32 u/l (19-48); SODIUM 139 mmol/l (137-146); TOTAL PROTEIN 4.5 g/dL (6.3-8.2)
[2023-12-17 07:42] VITALS: BP 122/76
[2023-12-17 10:57] VITALS: BP 92/54
[2023-12-17 14:30] VITALS: BP 119/69; BP 122/70
== END 2023-12-17 16:22 | disposition home health service (06) | DRG 948 ==
LOC: ED 15:24 → ED-I 17:14 → ED 18:02 → MS2 18:03
PROVIDERS: Emergency Medicine; Nurse Practitioner Family; ADMIT Student in an Organized Health Care Education/Training Program; ATTEND Student in an Organized Health Care Education/Training Program
DX: R41.82 Altered mental status, unspecified (principal); J96.11 Chronic respiratory failure with hypoxia; I47.20 Ventricular tachycardia, unspecified; R53.1 Weakness; R64 Cachexia; R42 Dizziness and giddiness; J44.9 Chronic obstructive pulmonary disease, unspecified; E03.9 Hypothyroidism, unspecified; E78.5 Hyperlipidemia, unspecified; N40.0 Benign prostatic hyperplasia without lower urinary tract symptoms; T41.5X6A Underdosing of therapeutic gases, initial encounter; Z91.128 Patient's intentional underdosing of medication regimen for other reason; Z87.891 Personal history of nicotine dependence; Z99.81 Dependence on supplemental oxygen; Z91.81 History of falling; Z60.2 Problems related to living alone; Z20.822 Contact with and (suspected) exposure to COVID-19
CPT/HCPCS: J1650

== ENCOUNTER 2024-05-04 11:31 | Observation (INO) | payer OTHER, MEDICARE ==
[2024-05-04] VITALS (22 sets, daily range): BP systolic 99–144; BP diastolic 68–88
[~2024-05-04] VITALS: Ht 167.6 cm; Wt 49.0 kg
[~2024-05-04 11:31] MED LIST changes: +CALCIUM 600/VI600 MG PO; +LOPRESSOR25 MG PO; +MIRTAZAPINE15 MG PO; +MUCINEX600 MG PO
[2024-05-04 12:14] LABS: BASO% 0.5 % (0-3); EOS% 7.7 % (0-8); HEMATOCRIT 39.3 % (39.0-50.0); HEMOGLOBIN 12.9 g/dl (14.0-18.0); IMMATURE GRANULOCYTES 0.2 % (0.0-5.0); MEAN CELL VOLUME 98.7 fL CALC (80.0-100.0); MEAN CORPUSCULAR HGB 32.4 pG CALC (26.0-32.0); MEAN CORPUSCULAR HGB CONC 32.8 g/dL CAL (32.0-36.0); MONO% 3.9 % (2-13); NEUT# 6.7 thou/uL (1.82-7.42); NEUT% 79.7 % (42-76); RED BLOOD COUNT 3.98 mill/uL (4.70-6.10); RED CELL DISTRI WIDTH 14.3 % (11.5-15.5)
[2024-05-04 12:28] LABS: ALBUMIN 3.7 g/dL (3.2-5.0); ALKALINE PHOSPHATASE 108 u/l (38-126); ANION GAP 5 (6-22 (CALC)); BUN 14 mg/dL (8-23); BUN/CREATININE RATIO 23 (12-20 (CALC)); CARBON DIOXIDE 30 mmol/l (22-30); CHLORIDE 106 mmol/l (95-108); CREATININE 0.6 mg/dL (0.7-1.3); ESTIMATED GFR 92 ML/MIN (>=90 (CALC)); POTASSIUM 3.9 mmol/l (3.5-5.1); SGOT/AST 43 u/l (19-48); SODIUM 137 mmol/l (137-146); TOTAL PROTEIN 6.7 g/dL (6.3-8.2)
[2024-05-04 12:38] LABS: BILIRUBIN, TOTAL 0.8 mg/dL (0.2-1.3)
[2024-05-04] MEDS ORDERED: IPRATROPIUM-Albuterol 0.5MG-2.5MG/3 ML NEB ONE (13:15)
[2024-05-04] MEDS ORDERED: methylPREDNISolone SODIUM SUCC 125 MG/2 ML SDV IV ONE (13:15)
[2024-05-04] MEDS ORDERED: AZITHROMYCIN 500 MG in SODIUM CHLORIDE 0.9% 250 ML IV ONE (14:30)
[2024-05-04] MEDS ORDERED: AZITHROMYCIN 500 MG/VIAL SDV IV ONE (15:09)
[2024-05-04] MEDS ORDERED: MAGNESIUM HYDROXIDE 30 ML UDC PO PRN (15:15)
[2024-05-04] MEDS ORDERED: ACETAMINOPHEN 325 MG/TAB PO PRN (15:15)
[2024-05-04] MEDS ORDERED: IPRATROPIUM-Albuterol 0.5MG-2.5MG/3 ML NEB PRN (15:20)
[2024-05-04] MEDS ORDERED: GUAIFENESIN 600 MG/TAB PO PRN (15:30)
[2024-05-04] MEDS ORDERED: ATORVASTATIN CALCIUM 40 MG/TAB PO SCH (21:00)
[2024-05-04] MEDS ORDERED: methylPREDNISolone Sod Succ 40 MG/ML SDV IV SCH (21:00)
[2024-05-04] MEDS ORDERED: ENOXAPARIN SODIUM 40 MG/0.4 ML SYR SC SCH (21:00)
[2024-05-05] VITALS (8 sets, daily range): BP systolic 97–119; BP diastolic 53–90
[2024-05-05 05:27] LABS: ALBUMIN 3.3 g/dL (3.2-5.0); BILIRUBIN, TOTAL 0.7 mg/dL (0.2-1.3); CREATININE 0.5 mg/dL (0.7-1.3); MAGNESIUM 2.1 mg/dL (1.6-2.3); POTASSIUM 4.5 mmol/l (3.5-5.1); TOTAL PROTEIN 6.1 g/dL (6.3-8.2)
[2024-05-05 05:44] LABS: BASO% 0.2 % (0-3); EOS% 0.2 % (0-8); HEMATOCRIT 38.1 % (39.0-50.0); HEMOGLOBIN 12.3 g/dl (14.0-18.0); IMMATURE GRANULOCYTES 0.2 % (0.0-5.0); LYMPH% 7.7 % (15-41); MEAN CORPUSCULAR HGB 31.9 pG CALC (26.0-32.0); MEAN CORPUSCULAR HGB CONC 32.3 g/dL CAL (32.0-36.0); NEUT# 5.67 thou/uL (1.82-7.42); NEUT% 88.7 % (42-76); RED BLOOD COUNT 3.85 mill/uL (4.70-6.10); RED CELL DISTRI WIDTH 14.3 % (11.5-15.5)
[2024-05-05] MEDS ORDERED: TAMSULOSIN HCL 0.4 MG CAP PO SCH (09:00)
[2024-05-05] MEDS ORDERED: PATIENT' OWN MED 1 EA DOSE PO SCH (09:00)
[2024-05-05] MEDS ORDERED: IPRATROPIUM-Albuterol 0.5MG-2.5MG/3 ML NEB SCH (15:00)
[2024-05-05] MEDS ORDERED: AZITHROMYCIN 250 MG/TAB PO SCH (16:00)
[2024-05-05] MEDS ORDERED: AZITHROMYCIN 500 MG in SODIUM CHLORIDE 0.9% 250 ML IV SCH (16:00)
[2024-05-05] MEDS ORDERED: GUAIFENESIN 600 MG/TAB PO SCH (21:00)
[2024-05-06] VITALS (7 sets, daily range): BP systolic 105–162; BP diastolic 58–99
[2024-05-06 05:01] LABS: BASO% 0.1 % (0-3); HEMATOCRIT 36.1 % (39.0-50.0); HEMOGLOBIN 11.7 g/dl (14.0-18.0); IMMATURE GRANULOCYTES 0.2 % (0.0-5.0); MEAN CELL VOLUME 99.2 fL CALC (80.0-100.0); MEAN CORPUSCULAR HGB 32.1 pG CALC (26.0-32.0); MEAN CORPUSCULAR HGB CONC 32.4 g/dL CAL (32.0-36.0); MONO% 1.4 % (2-13); NEUT# 10.8 thou/uL (1.82-7.42); NEUT% 95.3 % (42-76); RED BLOOD COUNT 3.64 mill/uL (4.70-6.10); RED CELL DISTRI WIDTH 14.5 % (11.5-15.5)
[2024-05-06 05:11] LABS: ALBUMIN 3.2 g/dL (3.2-5.0); CREATININE 0.7 mg/dL (0.7-1.3); MAGNESIUM 2.3 mg/dL (1.6-2.3); TOTAL PROTEIN 5.8 g/dL (6.3-8.2)
[2024-05-06 05:20] LABS: BILIRUBIN, TOTAL 0.4 mg/dL (0.2-1.3)
[2024-05-06] MEDS ORDERED: predniSONE 20 MG/TAB PO SCH (09:30)
[2024-05-07 04:15] VITALS: BP 93/53
[2024-05-07 06:12] LABS: ALBUMIN 2.9 g/dL (3.2-5.0); BASO% 0.2 % (0-3); BILIRUBIN, TOTAL 0.4 mg/dL (0.2-1.3); CREATININE 0.7 mg/dL (0.7-1.3); EOS% 0.9 % (0-8); HEMATOCRIT 33.6 % (39.0-50.0); IMMATURE GRANULOCYTES 0.2 % (0.0-5.0); LYMPH% 14.2 % (15-41); MAGNESIUM 2.3 mg/dL (1.6-2.3); MEAN CELL VOLUME 99.1 fL CALC (80.0-100.0); MEAN CORPUSCULAR HGB 32.4 pG CALC (26.0-32.0); MEAN CORPUSCULAR HGB CONC 32.7 g/dL CAL (32.0-36.0); MONO% 9.8 % (2-13); NEUT# 7.41 thou/uL (1.82-7.42); NEUT% 74.7 % (42-76); POTASSIUM 3.6 mmol/l (3.5-5.1); RED BLOOD COUNT 3.39 mill/uL (4.70-6.10); RED CELL DISTRI WIDTH 14.8 % (11.5-15.5); TOTAL PROTEIN 5.3 g/dL (6.3-8.2)
[2024-05-07 07:25] VITALS: BP 113/63
[2024-05-07] MEDS ORDERED: FLUTICASONE PROPIONATE (Nasal) 50MCG/SPRAY INH SCH (10:00)
[2024-05-07] MEDS ORDERED: MOMETASONE50 MCG/ACT NAB (13:42)
[2024-05-07] MEDS ORDERED: ZITHROMAX250 MG PO (13:42)
[2024-05-07 13:55] VITALS: BP 109/73
== END 2024-05-07 16:03 | disposition home health service (06) | DRG 190 ==
LOC: ED 11:31 → ED-I 14:20 → ED 14:41 → MS2 14:42
PROVIDERS: Family Medicine; Nurse Practitioner Family; ADMIT Student in an Organized Health Care Education/Training Program; ATTEND Student in an Organized Health Care Education/Training Program
DX: J44.1 Chronic obstructive pulmonary disease with (acute) exacerbation (principal); J96.21 Acute and chronic respiratory failure with hypoxia; F23 Brief psychotic disorder; T38.0X5A Adverse effect of glucocorticoids and synthetic analogues, initial encounter; E78.5 Hyperlipidemia, unspecified; R54 Age-related physical debility; N40.0 Benign prostatic hyperplasia without lower urinary tract symptoms; Z86.73 Personal history of transient ischemic attack (TIA), and cerebral infarction without residual deficits; Z99.81 Dependence on supplemental oxygen; Z87.891 Personal history of nicotine dependence; Z20.822 Contact with and (suspected) exposure to COVID-19
CPT/HCPCS: J1650

== ENCOUNTER 2024-06-30 08:46 | Inpatient (IN) | payer OTHER, MEDICARE ==
[2024-06-30] VITALS (34 sets, daily range): BP systolic 100–170; BP diastolic 62–107
[~2024-06-30] VITALS: Ht 167.6 cm; Wt 50.8 kg
[~2024-06-30 08:46] MED LIST changes: +MOMETASONE50 MCG/ACT NAB
[2024-06-30] MEDS ORDERED: SODIUM CHLORIDE 0.9% 500 ML IV ONE (09:10)
[2024-06-30 09:40] LABS: BASO% 0.3 % (0-3); EOS% 0.2 % (0-8); HEMATOCRIT 38.8 % (39.0-50.0); HEMOGLOBIN 12.7 g/dl (14.0-18.0); IMMATURE GRANULOCYTES 0.1 % (0.0-5.0); LYMPH% 5.1 % (15-41); MEAN CELL VOLUME 98.5 fL CALC (80.0-100.0); MEAN CORPUSCULAR HGB 32.2 pG CALC (26.0-32.0); MEAN CORPUSCULAR HGB CONC 32.7 g/dL CAL (32.0-36.0); MONO% 8.3 % (2-13); NEUT# 11.84 thou/uL (1.82-7.42); RED BLOOD COUNT 3.94 mill/uL (4.70-6.10); RED CELL DISTRI WIDTH 13.7 % (11.5-15.5)
[2024-06-30 09:41] LABS: URINE BILIRUBIN - DIPSTICK Negative (NEGATIVE); URINE BLOOD DIPSTICK Negative (NEGATIVE); URINE GLUCOSE - DIPSTICK Negative (NEGATIVE); URINE KETONE Negative (NEGATIVE); URINE LEUK ESTERASE Negative (NEGATIVE); URINE NITRITE - DIPSTICK Negative (Negative); URINE PH 6.5 (4.5-8.0); URINE PROTEIN - DIPSTICK Negative (NEG-TRACE); URINE UROBILINOGEN - DIPSTICK 0.2 E.U./dL (0.2)
[2024-06-30 09:42] LABS: URINE COLOR Yellow
[2024-06-30 10:02] LABS: CREATININE 0.9 mg/dL (0.7-1.3); MAGNESIUM 2.2 mg/dL (1.6-2.3); POTASSIUM 3.4 mmol/l (3.5-5.1)
[2024-06-30 10:03] LABS: ALBUMIN 4.1 g/dL (3.2-5.0); BILIRUBIN, TOTAL 0.6 mg/dL (0.2-1.3); TOTAL PROTEIN 7.2 g/dL (6.3-8.2)
[2024-06-30 10:33] LABS: TSH, 3RD GENERATION 5.51 uIU/mL (0.47 - 4.68)
[2024-06-30] MEDS ORDERED: cefTRIAXone SODIUM 2 GM in SODIUM CHLORIDE 0.9% 100 ML IV ONE (10:50)
[2024-06-30] MEDS ORDERED: SODIUM CHLORIDE 0.9% 1,000 ML IV PRN (15:00)
[2024-06-30] MEDS ORDERED: ACETAMINOPHEN 325 MG/TAB PO PRN (15:00)
[2024-06-30] MEDS ORDERED: MAGNESIUM HYDROXIDE 30 ML UDC PO PRN (15:00)
[2024-06-30] MEDS ORDERED: IPRATROPIUM-Albuterol 0.5MG-2.5MG/3 ML NEB PRN (16:40)
[2024-06-30] MEDS ORDERED: TAMSULOSIN HCL 0.4 MG CAP PO SCH (17:30)
[2024-06-30] MEDS ORDERED: ENOXAPARIN SODIUM 40 MG/0.4 ML SYR SC SCH (21:00)
[2024-07-01] VITALS (9 sets, daily range): BP systolic 102–133; BP diastolic 54–81
[2024-07-01 05:46] LABS: BASO% 0.5 % (0-3); EOS% 5.3 % (0-8); HEMATOCRIT 34.8 % (39.0-50.0); HEMOGLOBIN 11.4 g/dl (14.0-18.0); IMMATURE GRANULOCYTES 0.2 % (0.0-5.0); LYMPH% 12.5 % (15-41); MEAN CELL VOLUME 100.3 fL CALC (80.0-100.0); MEAN CORPUSCULAR HGB 32.9 pG CALC (26.0-32.0); MEAN CORPUSCULAR HGB CONC 32.8 g/dL CAL (32.0-36.0); MONO% 8.9 % (2-13); NEUT# 6.12 thou/uL (1.82-7.42); NEUT% 72.6 % (42-76); RED BLOOD COUNT 3.47 mill/uL (4.70-6.10); RED CELL DISTRI WIDTH 13.8 % (11.5-15.5)
[2024-07-01 06:02] LABS: BILIRUBIN, TOTAL 0.7 mg/dL (0.2-1.3); CREATININE 0.8 mg/dL (0.7-1.3); MAGNESIUM 2.2 mg/dL (1.6-2.3)
[2024-07-01 06:09] LABS: TOTAL PROTEIN 5.5 g/dL (6.3-8.2)
[2024-07-01] MEDS ORDERED: POTASSIUM CHLORIDE 20 MEQ/TAB PO SCH (08:00)
[2024-07-01] MEDS ORDERED: PANTOPRAZOLE SODIUM Sesquihydr 40 MG/TAB PO SCH (11:30)
[2024-07-01] MEDS ORDERED: PREDNISONE PO SCH (12:00)
[2024-07-02 04:14] VITALS: BP 120/67
[2024-07-02 05:42] LABS: BASO% 0.7 % (0-3); EOS% 5.9 % (0-8); HEMATOCRIT 32.6 % (39.0-50.0); HEMOGLOBIN 10.5 g/dl (14.0-18.0); IMMATURE GRANULOCYTES 0.3 % (0.0-5.0); MEAN CELL VOLUME 101.2 fL CALC (80.0-100.0); MEAN CORPUSCULAR HGB 32.6 pG CALC (26.0-32.0); MEAN CORPUSCULAR HGB CONC 32.2 g/dL CAL (32.0-36.0); MONO% 8.9 % (2-13); NEUT# 5.16 thou/uL (1.82-7.42); NEUT% 70.2 % (42-76); RED BLOOD COUNT 3.22 mill/uL (4.70-6.10); RED CELL DISTRI WIDTH 13.7 % (11.5-15.5)
[2024-07-02 06:10] LABS: ALBUMIN 2.8 g/dL (3.2-5.0); CREATININE 0.8 mg/dL (0.7-1.3); MAGNESIUM 2.4 mg/dL (1.6-2.3); TOTAL PROTEIN 5.2 g/dL (6.3-8.2)
[2024-07-02 06:14] LABS: BILIRUBIN, TOTAL 0.3 mg/dL (0.2-1.3); POTASSIUM 3.7 mmol/l (3.5-5.1)
[2024-07-02 06:43] VITALS: BP 122/72
[2024-07-02 07:03] VITALS: BP 129/75
[2024-07-02] MEDS ORDERED: Polyethylene Glycol 3350 17 GM/PKT PO SCH (09:00)
[2024-07-02] MEDS ORDERED: SENNOSIDES-Docusate Sodium 1 COMBO TAB PO SCH (09:00)
[2024-07-02 11:00] VITALS: BP 135/66
[2024-07-02] MEDS ORDERED: GUAIFENESIN 600 MG/TAB PO SCH (11:30)
[2024-07-02] MEDS ORDERED: IPRATROPIUM-Albuterol 0.5MG-2.5MG/3 ML NEB SCH ×2 (11:30→13:00)
[2024-07-02] MEDS ORDERED: FLUTICASONE PROPIONATE (Nasal) 50MCG/SPRAY INH SCH (12:30)
[2024-07-02 15:14] VITALS: BP 142/87
[2024-07-02 19:15] VITALS: BP 145/85
[2024-07-03] VITALS (12 sets, daily range): BP systolic 77–155; BP diastolic 43–99
[2024-07-03] MEDS ORDERED: FUROSEMIDE 40 MG/4 ML SDV IV SCH (02:55)
[2024-07-03] MEDS ORDERED: METOPROLOL TARTRATE 5 MG/5 ML VIAL IV SCH (03:45)
[2024-07-03 06:11] LABS: BASO% 0.3 % (0-3); EOS% 4.4 % (0-8); IMMATURE GRANULOCYTES 0.4 % (0.0-5.0); LYMPH% 4.9 % (15-41); MEAN CORPUSCULAR HGB 32.5 pG CALC (26.0-32.0); MEAN CORPUSCULAR HGB CONC 32.1 g/dL CAL (32.0-36.0); MONO% 6.9 % (2-13); NEUT# 12.09 thou/uL (1.82-7.42); NEUT% 83.1 % (42-76); RED BLOOD COUNT 3.88 mill/uL (4.70-6.10); RED CELL DISTRI WIDTH 13.9 % (11.5-15.5)
[2024-07-03 06:17] LABS: CREATININE 0.7 mg/dL (0.7-1.3); MAGNESIUM 2.1 mg/dL (1.6-2.3); POTASSIUM 4.1 mmol/l (3.5-5.1); TOTAL PROTEIN 6.2 g/dL (6.3-8.2)
[2024-07-03 06:18] LABS: HEMATOCRIT 39.2 % (39.0-50.0); HEMOGLOBIN 12.6 g/dl (14.0-18.0)
[2024-07-03 06:23] LABS: ALBUMIN 3.5 g/dL (3.2-5.0); BILIRUBIN, TOTAL 0.5 mg/dL (0.2-1.3)
[2024-07-03] MEDS ORDERED: MORPHINE SULFATE 4 MG/ML VIAL IV PRN (07:30)
[2024-07-03] MEDS ORDERED: NITROGLYCERIN 0.4 MG/TAB SL PRN (07:30)
[2024-07-03] MEDS ORDERED: IPRATROPIUM BROMIDE 0.5 MG/2.5 ML SOL IN SCH (08:00)
[2024-07-03] MEDS ORDERED: ASPIRIN 81 MG/TAB PO SCH ×2 (08:00→12:00)
[2024-07-03] MEDS ORDERED: LEVALBUTEROL HCL 1.25 MG/3 ML VIAL NEB SCH (08:00)
[2024-07-03] MEDS ORDERED: METOPROLOL TARTRATE 25 MG/TAB PO SCH (09:00)
[2024-07-03] MEDS ORDERED: AZITHROMYCIN 250 MG/TAB PO SCH (09:00)
[2024-07-03] MEDS ORDERED: ENOXAPARIN SODIUM 60 MG/0.6 ML SYR SC SCH (12:00)
[2024-07-03] MEDS ORDERED: BREZTRI IN SCH (15:00)
[2024-07-03] MEDS ORDERED: SODIUM CHLORIDE 0.9% 500 ML IV SCH (20:50)
[2024-07-03] MEDS ORDERED: MIDODRINE HCL 5 MG TAB PO SCH (21:00)
[2024-07-03] MEDS ORDERED: cefTRIAXone SODIUM 2 GM in SODIUM CHLORIDE 0.9% 100 ML IV SCH (21:00)
[2024-07-03] MEDS ORDERED: ATORVASTATIN CALCIUM 40 MG/TAB PO SCH (21:00)
[2024-07-04] VITALS (8 sets, daily range): BP systolic 88–121; BP diastolic 58–83
[2024-07-04 05:20] LABS: BASO% 0.3 % (0-3); HEMOGLOBIN 10.8 g/dl (14.0-18.0); IMMATURE GRANULOCYTES 0.1 % (0.0-5.0); LYMPH% 12.1 % (15-41); MEAN CELL VOLUME 99.1 fL CALC (80.0-100.0); MEAN CORPUSCULAR HGB 32.4 pG CALC (26.0-32.0); MEAN CORPUSCULAR HGB CONC 32.7 g/dL CAL (32.0-36.0); NEUT# 6.15 thou/uL (1.82-7.42); NEUT% 71.5 % (42-76); RED BLOOD COUNT 3.33 mill/uL (4.70-6.10)
[2024-07-04 05:45] LABS: BILIRUBIN, TOTAL 0.3 mg/dL (0.2-1.3); CREATININE 0.7 mg/dL (0.7-1.3); MAGNESIUM 2.3 mg/dL (1.6-2.3); POTASSIUM 3.4 mmol/l (3.5-5.1)
[2024-07-04 05:49] LABS: ALBUMIN 2.6 g/dL (3.2-5.0)
[2024-07-04] MEDS ORDERED: cefTRIAXone SODIUM 2 GM in SODIUM CHLORIDE 0.9% 100 ML IV SCH (20:00)
[2024-07-04] MEDS ORDERED: PATIENT' OWN MED 1 EA DOSE IN SCH (21:00)
[2024-07-05] VITALS (7 sets, daily range): BP systolic 11–122; BP diastolic 55–77
[2024-07-05 05:15] LABS: BASO% 0.4 % (0-3); EOS% 9.5 % (0-8); HEMATOCRIT 34.7 % (39.0-50.0); HEMOGLOBIN 11.3 g/dl (14.0-18.0); IMMATURE GRANULOCYTES 0.1 % (0.0-5.0); LYMPH% 16.2 % (15-41); MEAN CELL VOLUME 99.4 fL CALC (80.0-100.0); MEAN CORPUSCULAR HGB 32.4 pG CALC (26.0-32.0); MEAN CORPUSCULAR HGB CONC 32.6 g/dL CAL (32.0-36.0); MONO% 9.1 % (2-13); NEUT# 4.95 thou/uL (1.82-7.42); NEUT% 64.7 % (42-76); RED BLOOD COUNT 3.49 mill/uL (4.70-6.10); RED CELL DISTRI WIDTH 14.2 % (11.5-15.5)
[2024-07-05 05:30] LABS: ALBUMIN 2.6 g/dL (3.2-5.0); BILIRUBIN, TOTAL 0.3 mg/dL (0.2-1.3); CREATININE 0.8 mg/dL (0.7-1.3); MAGNESIUM 2.3 mg/dL (1.6-2.3); POTASSIUM 3.7 mmol/l (3.5-5.1)
[2024-07-05] MEDS ORDERED: METOPROLOL TARTRATE 5 MG/5 ML VIAL IV SCH (08:30)
[2024-07-05] MEDS ORDERED: CLOPIDOGREL BISULFATE 75 MG/TAB TAB PO SCH (12:00)
[2024-07-05] MEDS ORDERED: FUROSEMIDE 40 MG/4 ML SDV IV ONE (17:25)
[2024-07-05] MEDS ORDERED: METOPROLOL TARTRATE 5 MG/5 ML VIAL IV ONE (17:25)
[2024-07-05] MEDS ORDERED: METOPROLOL TARTRATE 5 MG/5 ML VIAL IV PRN (18:20)
[2024-07-05] MEDS ORDERED: METOPROLOL TARTRATE 25 MG/TAB PO SCH (21:00)
[2024-07-06 00:03] VITALS: BP 92/60
[2024-07-06 04:19] VITALS: BP 90/51
[2024-07-06 05:13] LABS: BASO% 0.6 % (0-3); EOS% 7.5 % (0-8); HEMATOCRIT 37.2 % (39.0-50.0); HEMOGLOBIN 12.2 g/dl (14.0-18.0); IMMATURE GRANULOCYTES 0.2 % (0.0-5.0); LYMPH% 14.6 % (15-41); MEAN CELL VOLUME 99.2 fL CALC (80.0-100.0); MEAN CORPUSCULAR HGB 32.5 pG CALC (26.0-32.0); MEAN CORPUSCULAR HGB CONC 32.8 g/dL CAL (32.0-36.0); MONO% 9.8 % (2-13); NEUT# 5.85 thou/uL (1.82-7.42); NEUT% 67.3 % (42-76); RED BLOOD COUNT 3.75 mill/uL (4.70-6.10); RED CELL DISTRI WIDTH 14.1 % (11.5-15.5)
[2024-07-06 05:50] LABS: ALBUMIN 3.1 g/dL (3.2-5.0); BILIRUBIN, TOTAL 0.4 mg/dL (0.2-1.3); CREATININE 0.8 mg/dL (0.7-1.3); MAGNESIUM 2.5 mg/dL (1.6-2.3); TOTAL PROTEIN 5.8 g/dL (6.3-8.2)
[2024-07-06 08:11] VITALS: BP 97/64
[2024-07-06] MEDS ORDERED: FUROSEMIDE 20 MG/TAB PO SCH (09:00)
[2024-07-06 11:25] VITALS: BP 101/61
[2024-07-06 15:47] VITALS: BP 122/65
[2024-07-06 19:17] VITALS: BP 103/64
[2024-07-07 00:05] VITALS: BP 94/55
[2024-07-07 03:50] VITALS: BP 103/63
[2024-07-07 05:57] LABS: BASO% 0.7 % (0-3); EOS% 7.9 % (0-8); HEMATOCRIT 35.1 % (39.0-50.0); HEMOGLOBIN 11.4 g/dl (14.0-18.0); IMMATURE GRANULOCYTES 0.4 % (0.0-5.0); LYMPH% 14.5 % (15-41); MEAN CELL VOLUME 100.9 fL CALC (80.0-100.0); MEAN CORPUSCULAR HGB 32.8 pG CALC (26.0-32.0); MEAN CORPUSCULAR HGB CONC 32.5 g/dL CAL (32.0-36.0); NEUT# 5.53 thou/uL (1.82-7.42); NEUT% 67.5 % (42-76); RED BLOOD COUNT 3.48 mill/uL (4.70-6.10); RED CELL DISTRI WIDTH 14.2 % (11.5-15.5)
[2024-07-07 06:06] LABS: ALBUMIN 2.9 g/dL (3.2-5.0); BILIRUBIN, TOTAL 0.3 mg/dL (0.2-1.3); CREATININE 0.8 mg/dL (0.7-1.3); MAGNESIUM 2.6 mg/dL (1.6-2.3); TOTAL PROTEIN 5.3 g/dL (6.3-8.2)
[2024-07-07 06:34] VITALS: BP 107/64
[2024-07-07] MEDS ORDERED: Polyethylene Glycol 3350 17 GM/PKT PO PRN (07:45)
[2024-07-07] MEDS ORDERED: BISACODYL 10 MG SUPP PR SCH (09:00)
[2024-07-07 10:35] VITALS: BP 128/76
[2024-07-07] MEDS ORDERED: PANTOPRAZOLE SO40 M1 PO (11:15)
[2024-07-07] MEDS ORDERED: ASPIRIN81 MG PO (11:15)
[2024-07-07] MEDS ORDERED: ATORVASTATIN CA40 MG PO (11:16)
[2024-07-07] MEDS ORDERED: MIDODRINE5 MG PO (11:17)
[2024-07-07] MEDS ORDERED: LACTULOSE 20 GM/30 ML UDC PO SCH (12:00)
== END 2024-07-07 13:38 | DRG 281 ==
LOC: ED 08:46 → ED-I 14:00 → MS2 14:39 → ED 14:39 → MS2 07-03 18:44
PROVIDERS: Family Medicine; Nurse Practitioner Family; Student in an Organized Health Care Education/Training Program; ADMIT Internal Medicine; ATTEND Internal Medicine
PROC: 0T9B70Z Drainage of Bladder with Drainage Device, Via Natural or Artificial Opening (ICD-10-PCS; principal; 2024-07-07)
DX: I21.4 Non-ST elevation (NSTEMI) myocardial infarction (principal); G93.40 Encephalopathy, unspecified; J44.1 Chronic obstructive pulmonary disease with (acute) exacerbation; J96.11 Chronic respiratory failure with hypoxia; E83.52 Hypercalcemia; I25.10 Atherosclerotic heart disease of native coronary artery without angina pectoris; J43.9 Emphysema, unspecified; D72.829 Elevated white blood cell count, unspecified; N40.1 Benign prostatic hyperplasia with lower urinary tract symptoms; R33.8 Other retention of urine; K59.00 Constipation, unspecified; I71.43 Infrarenal abdominal aortic aneurysm, without rupture; Z66 Do not resuscitate; Z99.81 Dependence on supplemental oxygen; Z87.891 Personal history of nicotine dependence; Z91.81 History of falling; Z86.73 Personal history of transient ischemic attack (TIA), and cerebral infarction without residual deficits; Z20.822 Contact with and (suspected) exposure to COVID-19
CPT/HCPCS: J1650

== ENCOUNTER 2024-08-08 11:06 | Emergency (ER) | payer OTHER, MEDICARE ==
[2024-08-08] VITALS (15 sets, daily range): BP systolic 95–138; BP diastolic 56–78
[~2024-08-08] VITALS: Ht 167.6 cm; Wt 48.0 kg
[~2024-08-08 11:06] MED LIST changes: +ASPIRIN81 MG PO; +ATORVASTATIN CA40 MG PO; +MIDODRINE5 MG PO; +PANTOPRAZOLE SO40 M1 PO
[2024-08-08 11:38] LABS: BASO% 0.5 % (0-3); EOS% 6.5 % (0-8); HEMATOCRIT 40.7 % (39.0-50.0); HEMOGLOBIN 12.8 g/dl (14.0-18.0); IMMATURE GRANULOCYTES 0.3 % (0.0-5.0); LYMPH% 8.5 % (15-41); MEAN CELL VOLUME 101.8 fL CALC (80.0-100.0); MEAN CORPUSCULAR HGB CONC 31.4 g/dL CAL (32.0-36.0); MONO% 7.8 % (2-13); NEUT# 7.69 thou/uL (1.82-7.42); NEUT% 76.4 % (42-76); RED CELL DISTRI WIDTH 14.1 % (11.5-15.5)
[2024-08-08] MEDS ORDERED: methylPREDNISolone SODIUM SUCC 125 MG/2 ML SDV IV ONE (11:40)
[2024-08-08] MEDS ORDERED: IPRATROPIUM-Albuterol 0.5MG-2.5MG/3 ML NEB ONE ×2 (11:40)
[2024-08-08] MEDS ORDERED: PROAIR RES108 MCG/AC (11:46)
[2024-08-08 11:55] LABS: CREATININE 0.8 mg/dL (0.7-1.3)
[2024-08-08 11:56] LABS: ALBUMIN 3.7 g/dL (3.2-5.0); BILIRUBIN, TOTAL 0.6 mg/dL (0.2-1.3); TOTAL PROTEIN 6.4 g/dL (6.3-8.2)
[2024-08-08] MEDS ORDERED: ZPAK PO (12:50)
[2024-08-08] MEDS ORDERED: VENTOLIN HFA108 MCG PO (12:50)
[2024-08-08] MEDS ORDERED: PREDNISONE10 MG PO (12:50)
== END 2024-08-08 14:53 | disposition home or self-care (01) | DRG 191 ==
LOC: ED 11:06
PROVIDERS: Family Medicine
DX: J44.1 Chronic obstructive pulmonary disease with (acute) exacerbation (principal); J96.10 Chronic respiratory failure, unspecified whether with hypoxia or hypercapnia; Z99.81 Dependence on supplemental oxygen; Z87.891 Personal history of nicotine dependence; Z20.822 Contact with and (suspected) exposure to COVID-19